=== PATIENT | male | born 1975 | race Caucasian/White ===

== ENCOUNTER → 2018-03-15 | Outpatient (CLI) | payer OTHER ==
[~2018-03-15] MED LIST: ASPEC81 PO; CLOP1TAB15 PO; LISI5TAB3 PO; LPT/40 PO; METO25TA56 PO; NTRSLP4 SL; PRD75 PO
[2018-03-15 15:38] LABS: BASO % 0.4 %; BASO ABS # 0.04 K/uL (0-0.2); EOS % 1.1 %; EOS ABS # 0.11 K/uL (0-0.5); HEMOGLOBIN 15.6 g/dL (14.0-18.0); IG# 0.02 K/uL (0.00-0.02); LYMPH % 23.5 %; LYMPH ABS # 2.32 K/uL (1.2-3.4); MEAN CELL VOLUME 84.1 fL (80-100); MEAN CORPUSCULAR HEMOGLOBIN 29.8 pg (25-34); MEAN CORPUSCULAR HGB CONC 35.5 g/dl (32-36); MEAN PLATELET VOLUME 9.6 fL (7.4-10.4); MONO % 7.4 %; MONO ABS # 0.73 K/uL (0.11-0.59); NEUT % 67.4 %; NEUT ABS # 6.65 K/uL (1.4-6.5); PLATELET COUNT 328 K/uL (130-400); RED CELL DISTRIBUTION WIDTH CV 12.1 % (11.5-14.5); RED CELL DISTRIBUTION WIDTH SD 37.1 fL (36.4-46.3); WHITE BLOOD COUNT 9.87 K/uL (4.8-10.8)
[2018-03-15 15:55] LABS: ALBUMIN 4.2 gm/dl (3.4-5.0); ALKALINE PHOSPHATASE 73 U/L (45-117); ALT/SGPT 33 U/L (12-78); AST/SGOT 16 U/L (15-37); BLOOD UREA NITROGEN 10 mg/dl (7-18); CALCIUM 9.3 mg/dl (8.5-10.1); CARBON DIOXIDE 26 mmol/L (21-32); CREATININE 0.81 mg/dl (0.60-1.40); GLUCOSE 91 mg/dl (70-99); POTASSIUM 3.8 mmol/L (3.5-5.1); SODIUM 139 mmol/L (136-145)
== END | disposition home or self-care (01) ==
LOC: C.LAB1850 14:14
PROVIDERS: ATTEND Internal Medicine Cardiovascular Disease
DX: I10 Essential (primary) hypertension (principal)